=== PATIENT | male | born 1990 | race Caucasian/White ===

== ENCOUNTER 2023-05-12 18:11 | Emergency (ER) | payer SELFPAY ==
[2023-05-12 18:18] VITALS: BP 161/102; PULSE 83; RESP 15; TEMP 36.3; O2SAT 98
--- NOTE | 2023-05-12 19:22 | W.ED.GENAD ---
Discharge Plan Disposition Patient Disposition: Home Condition: Good Discharge Details Clinical Impression: Dental infection Primary Care Provider: Marizol Mott ED Provider: Hyacinth Jorgensen Home Meds and New Rx's Prescriptions: New clindamycin HCl 150 mg capsule 450 mg PO TID 5 Days Qty: 45 0RF Continued sumatriptan succinate [Imitrex] 25 MG tablet 1 tab PO PRN ibuprofen 600 MG tablet 600 mg PO Q6H PRN (Reason: Pain) Qty: 16 0RF Discharge Instructions Instructions: Clindamycin (By mouth), Dental Abscess (ED) Additional Instructions: I am concerned that you are developing an infection after receiving her dental treatment. Please encourage hydration. May take Tylenol and ibuprofen as needed for discomfort. Please take the antibiotics as prescribed. This will be 3 tablets 3 times a day. Please call your dentist on Monday to schedule follow-up appointment. If you develop fever/chills, increased pain or other new/worsening symptom please seek care urgently once again. Referrals: Marizol Mott MD [Primary Care Provider] - Discharge Data Discharge Date/Time-TO BE ENTERED AT DEPARTURE: 05/12/23 20:15 Medical Decision Making Medical Records Medical records narrative: Patient is a pleasant 32-year-old male presenting today with chief complaint of left lower dental pain. He reports that he was seen by a dentist after not having care in about 10 years, 5 days ago. He reports that he had a feeling completed and since that time the pains been progressively worsening. denies any radiation of pain. No fevers or chills. On exam, patient appears slightly uncomfortable. No audible or palpable abscess. No significant lymphadenopathy. No swelling under the tongue. No tonsillar swelling, uvula is midline. Concerned that patient developed an infection under recently placed filling. Will treat with abx, allergies to penicillins. Was given dosing tonight. Advised he call his dentist Monday to discuss the concern. Strict return precautions given. All of his questions and concerns were addressed, he is in agreement with this plan. HPI General Date/Time Provider Initiated Documentation: 05/12/23 19:22. Limitations to Documentation: no limitations. Information obtained by: patient and RN notes reviewed. History of Present Illness 32 year old M presents to the emergency department with the chief complaint of left lower dental pain, described as moderate and similar to prior episodes (has had issues with this tooth in the past, recently had this tooth fixed), with intensity rated at 4. and is localized to the mouth. Patient reports no radiation. Patient started experiencing this day(s) (cavity filled 4 days ago, pain has been increasing since then) and it has been constant. No relieving factors improve symptom(s), No exacerbating factors reported . Patient notes no other symptoms.; denies fever/chills. Patient did receive the following treatments prior to arrival, other (cavity recently filled by dentist) Related Data Home Medications Medication Instructions Recorded Confirmed ibuprofen 600 mg tablet 600 mg PO Q6H PRN Pain ##16 04/02/17 sumatriptan succinate 25 mg tablet 1 tab PO PRN 04/02/17 (Imitrex) clindamycin HCl 150 mg capsule 450 mg PO TID 5 days #45 caps 05/12/23 Previous Rx's Medication Instructions Recorded ibuprofen 600 mg tablet 600 mg PO Q6H PRN Pain ##16 04/02/17 clindamycin HCl 150 mg capsule 450 mg PO TID 5 days #45 caps 05/12/23 Allergies Allergy/AdvReac Type Severity Reaction Status Date / Time amoxicillin Allergy Mild Skin Rash Unverified 04/02/17 15:29 Penicillins Allergy Mild Skin Rash Unverified 04/02/17 15:29 General Stated Complaint: DentalOral BLANCA: 4 Review of Systems Constitutional Constitutional: Reports as per HPI, Denies chills, Denies fever(s) and Denies headache(s) ENT Ears, Nose, Mouth, and Throat: Reports as per HPI, Reports dental pain, Denies otalgia, Denies headache(s) and Denies sore throat Integumentary/Breasts Skin/Breast: Reports as per HPI, Denies erythema, Denies rash and Denies skin pain Neurologic Neurologic: Reports as per HPI and Denies headache(s) PFSH All Active Problems (Updated 05/12/23 @ 19:46 by SUZANNA Rdz) Dental infection (Acute) Social History Smoking risk assessment performed?: No Do you feel safe at home: Yes Do you feel safe in your relationship?: Yes Exam Const General: cooperative, healthy appearing, comfortable, no acute distress, well developed and well groomed Nutritional Appearance: average body habitus and well nourished Orientation: alert and awake [facility] Head: normal to inspection, normocephalic and atraumatic Ears: hearing grossly normal bilaterally, external ears normal and TM's normal bilaterally General nose exam: external nose normal and nares normal Face and sinus: normal facial exam, sinuses nontender and face symmetric Teeth image: 1. Area of pain. No erythema, swelling or fluctuance Throat: posterior oropharynx normal, tonsils normal and uvula midline Eyes General: appearance normal, both eyes and all related structures Neck Neck: normal visual inspection, full ROM, no lymphadenopathy, supple and no anterior neck swelling Resp Effort & Inspection: normal respiratory effort, able to speak in complete sentences and no respiratory distress Skin General skin exam: no rashes or lesions noted Trauma: no lacerations or abrasions Neuro General: patient alert and patient awake Cognition: normal cognition Speech: speech normal Gait: normal gait Course Vital Signs Vital signs: Vital Signs Temperature 36.3 C L 05/12/23 18:18 Pulse 83 05/12/23 18:18 Respiratory Rate 15 05/12/23 18:18 Blood Pressure 161/102 H 05/12/23 18:18 Pulse Oximetry 98 05/12/23 18:18 Temperature 36.3 C L 05/12/23 18:18 Pulse 83 05/12/23 18:18 Respiratory Rate 15 05/12/23 18:18 Blood Pressure 161/102 H 05/12/23 18:18 Blood Pressure Position Sitting 05/12/23 18:18 Pulse Oximetry 98 05/12/23 18:18 Oxygen Delivery Method Room Air 05/12/23 18:18 Oxygen Flow Rate 0 05/12/23 18:18 Pain Level 4 05/12/23 18:18
[2023-05-12] MEDS: Acetaminophen 500 MG TAB 1000 MG PO (20:13)
[2023-05-12] MEDS: Clindamycin 150 MG CAP, 12 CAPS/BTL 450 MG PO (20:13)
[2023-05-12] MEDS: Ibuprofen 600 MG TAB PO (20:13)
== END 2023-05-12 20:15 | disposition home or self-care (01) ==
PROVIDERS: Emergency Provider Physician Assistant; PCP Family Medicine
DX: K08.89 Other specified disorders of teeth and supporting structures (principal); R68.84 Jaw pain
CPT/HCPCS: 99283; 99284

== ENCOUNTER 2024-01-22 11:33 | Outpatient (REF) | payer MEDICAID, SELFPAY ==
[2024-01-22 15:35] LABS: HCT 43.6 % (40.0-50.0); HGB 14.6 g/dL (13.5-17.5); MCH 30.5 pg (27.0-33.0); MCHC 33.5 % (32.0-36.0); MCV 91 fL (80-95); MPV 9.9 fL (8.0-11.0); Platelet Count 243 10^3/uL (130-400); RBC 4.79 10^6/uL (4.36-5.78); RDW 12.3 % (11.8-14.1); WBC 5.56 10^3/uL (4.4-10.8)
[2024-01-22 16:08] LABS: Hemoglobin A1C 5.6 % (<5.7)
[2024-01-22 16:17] LABS: ALT 43 U/L (16-63); AST 17 U/L (15-37); Albumin 4.3 g/dL (3.4-5.0); Alkaline Phosphatase 74 U/L (46-116); BUN 14 mg/dL (7-18); Bilirubin, Total 0.5 mg/dL (0.2-1.0); Calcium 9.5 mg/dL (8.5-10.1); Chloride 103 mmol/L (98-107); Estimated GFR 103.19 (mL/min/1.73m2); Glucose 100 mg/dL (74-106); Potassium 4.8 mmol/L (3.5-5.1); Sodium 140 mmol/L (136-145); TSH 2.16 uIU/Ml (0.36-3.74); Total Protein 7.6 g/dL (6.4-8.2); Vitamin B12 508 pg/mL (193-986)
[2024-01-22 16:19] LABS: Folate > 20.0 ng/mL (8.6-20.0)
== END 2024-01-22 11:34 | disposition home or self-care (01) ==
LOC: NCHCN 11:33
PROVIDERS: PCP Family Medicine; Visit Provider Nurse Practitioner Family
DX: F90.9 Attention-deficit hyperactivity disorder, unspecified type (principal)
CPT/HCPCS: 80053; 85027; 82607; 82746; 83036; 84443

== ENCOUNTER 2024-01-30 15:22 | Emergency (ER) | payer MEDICAID, SELFPAY ==
[2024-01-30 15:24] VITALS: BP 140/81; PULSE 86; RESP 16; TEMP 37; O2SAT 97
--- NOTE | 2024-01-30 15:38 | ED.GENADUL_ITS ---
Discharge Plan Disposition Patient Disposition: Home Discharge Details Clinical Impression: Laceration of forearm, right Primary Care Provider: Marizol Mott ED Provider: Arden Mac Home Meds and New Rx's Prescriptions: Continued sumatriptan succinate [Imitrex] 25 MG tablet 1 tab PO PRN ibuprofen 600 MG tablet 600 mg PO Q6H PRN (Reason: Pain) Qty: 16 0RF Discharge Instructions Instructions: Laceration (ED) Additional Instructions: You were seen in the emergency department for your right wrist lacerations which were closed with 3 sutures that will need to be removed in 7 to 10 days. As we discussed, please keep your wound clean, dry and covered. Please do not soak in a tub, swim or engage in any activities which could introduce dirt into your wound. You may return to the emergency department, go to urgent care or go to your primary care provider in 7 to 10 days to have your stitches removed. As we discussed if you develop any foul-smelling drainage fevers streaking signs of infection or have any other concerns please return to the emergency department. For your pain please take medications as follows: 1. Take acetaminophen (Tylenol), 1,000 mg (two 500 mg tabs) every 6 hours [2. Take ibuprofen (Advil), 400 mg every 6 hours.] Discharge Data Discharge Date/Time-TO BE ENTERED AT DEPARTURE: 01/30/24 17:32 HPI General Date/Time Provider Initiated Documentation: 01/30/24 15:38 . HPI Narrative: MDM This is an overall very well-appearing normothermic and not tachycardic [id number] male with subcutaneous laceration which received primary closure in the emergency department following copious irrigation. Please see procedure note for details. Patient was neurovascularly intact with intact sensory and motor function in his distal right hand so I was not concerned for any tendon injury. Patient had his tetanus updated approximately 4 weeks ago. He was not trying to harm himself. Patient and I discussed return to the ED for streaking signs of infection fevers any foul-smelling drainage. I advised PCP urgent care or ED follow-up for suture removal in 7 to 10 days. Patient understood his return indications and was discharged with empiric trial of expe ctant outpatient management. HPI This is a [id number] 33-year-old male history of bipolar disorder and ADHD arriving to the emergency department in the setting of a laceration he sustained at work. Patient works as an licensed journeyman electrician. He slipped and cut the inside of his right wrist with a drill bit at approximately 3 PM this afternoon. He establish care with a primary care provider last month and had his tetanus updated. He was not trying to harm himself. His bleeding was controlled. He has not noticed any weakness in his right hand. Exam General: Well-appearing in no acute distress speaking in complete sentences. Head: Normocephalic, atraumatic. Eye: Extraocular eye movements intact. No conjunctival injection. No scleral icterus. Ear, nose, mouth, throat: Grossly normal inspection. Normal voice, handling secretions normally. Neck: Trachea midline. Cardiovascular: Well-perfused distal extremities. Respiratory: Nonlabored respiration. Gastrointestinal: Nondistended abdomen. Musculoskeletal: On the volar and ulnar side of the right wrist there are 2 lacerations. The first laceration measures approximately 3 cm and it is just proximal to the right wrist. Second laceration is on the radial side of the first laceration and is 1 cm. Both lacerations are hemostatic. Both lacerations violates the subcutaneous tissue. Right hand warm well-perfused with 2+ right radial pulse. Sensation motor function intact in the right hand across the radial, ulnar and median nerves. Cap refill less than 2 seconds in the right fingertips. Skin: Normal for age and race, grossly normal temperature and turgor. No acute rash. Neurologic: Alert and appropriate, no apparent acute deficits. Psychiatric: Mood and manner are appropriate. Grooming and personal hygiene are appropriate. Related Data Home Medications Medication Instructions Recorded Confirmed ibuprofen 600 mg tablet 600 mg PO Q6H PRN Pain ##16 04/02/17 sumatriptan succinate 25 mg tablet 1 tab PO PRN 04/02/17 (Imitrex) Previous Rx's Medication Instructions Recorded ibuprofen 600 mg tablet 600 mg PO Q6H PRN Pain ##16 04/02/17 Allergies Allergy/AdvReac Type Severity Reaction Status Date / Time amoxicillin Allergy Mild Skin Rash Verified 01/30/24 15:28 Penicillins Allergy Mild Skin Rash Verified 01/30/24 15:28 General Stated Complaint: Laceration BLANCA: 3 Course Vital Signs Vital signs: Vital Signs Temperature 37.0 C 01/30/24 15:24 Pulse 86 01/30/24 15:24 Respiratory Rate 16 01/30/24 15:24 Blood Pressure 140/81 01/30/24 15:24 Pulse Oximetry 97 01/30/24 15:24 Temperature 37.0 C 01/30/24 15:24 Pulse 86 01/30/24 15:24 Respiratory Rate 16 01/30/24 15:24 Respiratory Effort Normal 01/30/24 15:27 Blood Pressure 140/81 01/30/24 15:24 Blood Pressure Position Sitting 01/30/24 15:24 Pulse Oximetry 97 01/30/24 15:24 Oxygen Delivery Method Room Air 01/30/24 15:24 Oxygen Flow Rate 0 01/30/24 15:24 Pain Level 2 01/30/24 15:24 Procedures Laceration Laceration 1: Site: upper extremity Side (If applicable): right Size (cm): 3 Description: linear Depth: simple, single layer Local Anesthetic: Lidocaine 2% and other anesthetic (L ET) Amount of anesthesia used (mL): 3 Pre-repair: wound explored and irrigated extensively Skin layer closed with: nylon (Prolene) Size (cm): 5-0 Number of sutures: 2 Technique: simple, interrupted Laceration 2: Site: upper extremity Side (If applicable): right Size (cm): 1 Description: linear Depth: simple, single layer Local Anesthetic: Lidocaine 2% and other anesthetic (LET) Amount of anesthesia used (mL): 3 Pre-repair: wound explored and irrigated extensively Skin layer closed with: nylon Size (cm): 5-0 (Prolene) Number of sutures: 1 Technique: simple, interrupted Medical Decision Making Quality:SDOH Health Related Social Needs: No Data to Display PFSH All Active Problems (Updated 01/30/24 @ 17:17 by Arden Mac MD) Laceration of forearm, right (Acute) Social History Smoking/Tobacco Use Status: Current every day Smoking risk assessment performed?: Yes Do you feel safe at home: Yes Do you feel safe in your relationship?: Yes
[2024-01-30] MEDS: Lidocaine/Epinephri/Tetracaine Topical Gel 3 ML TP (16:23)
== END 2024-01-30 17:32 | disposition home or self-care (01) ==
PROVIDERS: Emergency Provider Emergency Medicine; PCP Family Medicine
DX: S61.511A Laceration without foreign body of right wrist, initial encounter (principal); W29.8XXA Contact with other powered hand tools and household machinery, initial encounter; Y99.0 Civilian activity done for income or pay; F31.9 Bipolar disorder, unspecified; F90.9 Attention-deficit hyperactivity disorder, unspecified type
CPT/HCPCS: 12002

== ENCOUNTER 2024-02-07 13:50 | Emergency (ER) | payer MEDICAID, SELFPAY ==
[2024-02-07 13:53] VITALS: BP 137/71; PULSE 66; RESP 15; TEMP 36.6; O2SAT 97
--- NOTE | 2024-02-07 13:59 | ED.GENADUL_ITS ---
Discharge Plan Disposition Patient Disposition: Home Condition: Stable Discharge Details Clinical Impression: Infected wound, Laceration of forearm, right Primary Care Provider: Marizol Mott ED Provider: César Schumacher Home Meds and New Rx's Prescriptions: New clindamycin HCl 150 mg capsule 450 mg PO TID 7 Days Qty: 63 0RF Continued sumatriptan succinate [Imitrex] 25 MG tablet 1 tab PO PRN ibuprofen 600 MG tablet 600 mg PO Q6H PRN (Reason: Pain) Qty: 16 0RF Discharge Instructions Additional Instructions: Keep the wound clean If you have severe worsening pain or fevers return to the emergency department for reevaluation Follow-up with your primary care provider as needed HPI General Mode of arrival: ambulatory . Date/Time Provider Initiated Documentation: 02/07/24 13:54 . Limitations to Documentation: no limitations . Information obtained by: patient . History of Present Illness 33 year old M presents to the emergency department with the chief complaint of Suture removal, described as moderate, Patient started experiencing this week(s) (1) and it has been constant. No relieving factors improve symptom(s), No exacerbating factors reported . Patient notes denies fever/chills. Patient did receive the following treatments prior to arrival, none Related Data Home Medications Medication Instructions Recorded Confirmed ibuprofen 600 mg tablet 600 mg PO Q6H PRN Pain ##16 04/02/17 sumatriptan succinate 25 mg tablet 1 tab PO PRN 04/02/17 (Imitrex) clindamycin HCl 150 mg capsule 450 mg (3 x 150 mg) PO TID 7 days 02/07/24 #63 caps Previous Rx's Medication Instructions Recorded ibuprofen 600 mg tablet 600 mg PO Q6H PRN Pain ##16 04/02/17 clindamycin HCl 150 mg capsule 450 mg (3 x 150 mg) PO TID 7 days 02/07/24 #63 caps Allergies Allergy/AdvReac Type Severity Reaction Status Date / Time amoxicillin Allergy Mild Skin Rash Verified 01/30/24 15:28 Penicillins Allergy Mild Skin Rash Verified 01/30/24 15:28 General Stated Complaint: SutureRem BLANCA: 4 Review of Systems All systems reviewed & are unremarkable except as noted in HPI and below Constitutional Constitutional: Denies chills, Denies fever(s) and Denies weakness Cardiovascular Cardiovascular: Denies chest pain and Denies dyspnea Respiratory Respiratory: Denies cough and Denies dyspnea Gastrointestinal Gastrointestinal: Denies abdominal pain, Denies nausea and Denies vomiting Musculoskeletal Musculoskeletal: Denies joint swelling Integumentary/Breasts Skin/Breast: Reports rash Neurologic Neurologic: Denies weakness Exam Const General: no acute distress Orientation: alert HENMT Head: normal to inspection Ears: external ears normal General nose exam: external nose normal Mouth: moist mucous membranes Eyes General: appearance normal, both eyes and all related structures Neck Neck: normal visual inspection Resp Effort & Inspection: normal respiratory effort and able to speak in complete sentences Cardio Rate: regular rate Skin General skin exam: erythema Neuro General: patient alert Extrem General: capillary refill normal Psych Mental Status: mental status grossly normal Course Vital Signs Vital signs: Vital Signs Temperature 36.6 C 02/07/24 13:53 Pulse 66 02/07/24 13:53 Respiratory Rate 15 02/07/24 13:53 Blood Pressure 137/71 02/07/24 13:53 Pulse Oximetry 97 02/07/24 13:53 Temperature 36.6 C 02/07/24 13:53 Temperature Source Temporal Artery Scan 02/07/24 13:53 Pulse 66 02/07/24 13:53 Respiratory Rate 15 02/07/24 13:53 Respiratory Effort Normal 02/07/24 13:57 Blood Pressure 137/71 02/07/24 13:53 Blood Pressure Position Sitting 02/07/24 13:53 Pulse Oximetry 97 02/07/24 13:53 Oxygen Delivery Method Room Air 02/07/24 13:53 Oxygen Flow Rate 0 02/07/24 13:53 Pain Level 0 02/07/24 13:53 Medical Decision Making 33-year-old male comes in for suture removal after at 3 sutures placed on his right distal forearm. He denies any fevers or severe pain but has noted some erythema around the wound. He has about 1 cm surrounding erythema around the wound and the wound does seem well healed. There is no significant swelling. Concern for possible wound infection we will start him on clindamycin, sutures will be removed by nursing, return precautions given Differential Diagnosis Differential Diagnosis: Wound infection, cellulitis. Quality:SDOH Health Related Social Needs: No Data to Display PFSH All Active Problems (Updated 02/07/24 @ 13:59 by César Schumacher MD) Infected wound (Acute) Laceration of forearm, right (Acute) Social History Smoking/Tobacco Use Status: Current every day Smoking risk assessment performed?: Yes Alcohol Intake: never Drug use: Never Substance use type: does not use Do you feel safe at home: Yes Do you feel safe in your relationship?: Yes
== END 2024-02-07 14:23 | disposition home or self-care (01) ==
PROVIDERS: Emergency Provider Emergency Medicine; PCP Family Medicine
DX: S51.811D Laceration without foreign body of right forearm, subsequent encounter (principal); L03.113 Cellulitis of right upper limb; F17.210 Nicotine dependence, cigarettes, uncomplicated
CPT/HCPCS: 99283

== ENCOUNTER 2024-02-10 04:34 | Emergency (ER) | payer MEDICAID, SELFPAY ==
[2024-02-10 04:40] VITALS: BP 145/86; PULSE 63; RESP 22; TEMP 36.8; O2SAT 99
--- NOTE | 2024-02-10 04:48 | W.ED.GENAD ---
Discharge Plan Disposition Patient Disposition: Home Condition: Good Discharge Details Chief Complaint: DentalOral Clinical Impression: Acute periapical abscess, Dental caries Primary Care Provider: Marizol Mott ED Provider: Alex Corbett Home Meds and New Rx's Prescriptions: No Action sumatriptan succinate [Imitrex] 25 MG tablet 1 tab PO ONCE PRN ibuprofen 600 MG tablet 600 mg PO Q6H PRN (Reason: Pain) Qty: 16 0RF lisdexamfetamine [Vyvanse] 40 mg capsule 40 mg PO DAILY Lotrexone 1.5 mg capsule 1.5 mg PO DAILY clindamycin HCl 150 mg capsule 450 mg PO TID 7 Days Qty: 63 0RF Discharge Instructions Instructions: Dental Abscess (ED) Additional Instructions: The block we administered should help improve your pain. Please take 800 mg of ibuprofen every 6 hours and 1000 mg of Tylenol every 6 hours to help with the inflammation and pain. These are the maximum doses. Please take the antibiotic as directed to help with the infection in your tooth. Please use the dental list that we have provided to contact the dentist for prompt follow-up and evaluation for tooth removal. If you notice any worsening of your symptoms, or any new symptoms such as difficulty swallowing, difficulty breathing, vomiting, diarrhea, fever, chills, shortness of breath, chest pain, numbness, weakness, or fainting , please return immediately to the emergency department for reevaluation. Please follow up with your primary care provider as soon as possible for reassessment and reevaluation. As always, it was a pleasure participating in your medical care today. Referrals: Marizol Mott MD [Primary Care Provider] - [facility] General Date/Time Provider Initiated Documentation: 02/10/24 04:36. [facility] Narrative: This is a pleasant 33-year-old male who presents today for evaluation of right lower dental pain. Patient had a right lower molar that broke sometime ago, however over the last week or so he has had worsening pain in that area. 2 days ago he was started on an antibiotic clindamycin for a skin infection on his wrist. While on this he has noticed slight increase in pain and swelling in the right lower molar area. He denies fever or chills. He denies chest pain or shortness of breath. No other complaints. He has been taking Tylenol and Motrin with only mild improvement of pain. He denies vomiting or diarrhea. No other complaints at this time. Related Data Home Medications Medication Instructions Recorded Confirmed ibuprofen 600 mg tablet 600 mg PO Q6H PRN Pain ##16 04/02/17 02/10/24 sumatriptan succinate 25 mg tablet 1 tab PO ONCE PRN 04/02/17 02/10/24 (Imitrex) clindamycin HCl 150 mg capsule 450 mg (3 x 150 mg) PO TID 7 days 02/07/24 02/10/24 #63 caps lisdexamfetamine 40 mg capsule 40 mg PO DAILY 02/10/24 02/10/24 (Vyvanse) naltrexone 1.5 mg capsule 1.5 mg PO DAILY 02/10/24 02/10/24 (Lotrexone) Previous Rx's Medication Instructions Recorded ibuprofen 600 mg tablet 600 mg PO Q6H PRN Pain ##16 04/02/17 clindamycin HCl 150 mg capsule 450 mg (3 x 150 mg) PO TID 7 days 02/07/24 #63 caps Allergies Allergy/AdvReac Type Severity Reaction Status Date / Time amoxicillin Allergy Mild Skin Rash Verified 01/30/24 15:28 Penicillins Allergy Mild Skin Rash Verified 01/30/24 15:28 General Stated Complaint: DentalOral BLANCA: 3 Review of Systems All systems reviewed & are unremarkable except as noted in HPI and below Exam Narrative Exam Narrative: 1.Const: Well-nourished, Well-developed, appearing stated age 2.Eyes: PERRL, no conjunctival injection, and symmetrical lids. 3.ENT: Atraumatic external nose and ears. Moist MM. Neck: Symmetric, trachea midline, No thyromegaly. Small fractured molar in the posterior right lower molar group. Small periapical abscess next to this. No evidence of Ludewig's angina or oropharyngeal swelling otherwise. 4.CVS: +S1/S2, No murmurs or gallops. Peripheral pulses 2+ and equal in all extremities. Brisk capillary refill in all extremities. 5.RESP: Unlabored respiratory effort. Clear to auscultation bilaterally. No wheezes rales or rhonchi 6.GI: Soft, Nontender/Nondistended, No hepatosplenomegaly. No guarding or rebound. 7.MSK: Normocephalic/Atraumatic, Extremities w/o deformity or ttp No cyanosis or clubbing, Normal movement of all extremities 8.Skin: Warm, Dry. No rashes or lesions. 9.Neuro: traveling nurse II-XII grossly intact. Sensation grossly intact, no focal neurologic deficits. 10.Psych: (AAO) x3. Appropriate mood and affect Course Vital Signs Vital signs: Vital Signs Temperature 36.8 C 02/10/24 04:40 Pulse 63 02/10/24 04:40 Respiratory Rate 22 02/10/24 04:40 Blood Pressure 145/86 H 02/10/24 04:40 Pulse Oximetry 99 02/10/24 04:40 Temperature 36.8 C 02/10/24 04:40 Temperature Source Temporal Artery Scan 02/10/24 04:40 Pulse 63 02/10/24 04:40 Respiratory Rate 22 02/10/24 04:40 Respiratory Effort Normal, Non-Labored 02/10/24 04:44 Blood Pressure 145/86 H 02/10/24 04:40 Blood Pressure Position Sitting 02/10/24 04:40 Pulse Oximetry 99 02/10/24 04:40 Oxygen Delivery Method Room Air 02/10/24 04:40 Oxygen Flow Rate 0 02/10/24 04:40 Pain Level 6 02/10/24 04:44 Procedures Abscess I/D Site: Other (Right lower periapical space) Side (if applicable): Right Sedation/analgesia: None Local Anesthetic: Bupivicaine 0.25% Amount of anesthesia used (mL): 5 Technique: Needle Aspiration Amount of fluid expressed (mL): 1 Irrigation: No Packing used?: None Nerve Block Nerve Block 1: Time out performed: Yes Local Anesthetic: Bupivicaine 0.25% Amount of anesthesia used (mL): 5 Side: right Intraoral Nerve Block: inferior alveolar Procedure Successful: Yes Patient Tolerated Procedure: well and no complications Complications: none Medical Decision Making This is a pleasant 33-year-old male who presents today for evaluation of right lower dental pain. Patient had a right lower molar that broke sometime ago, however over the last week or so he has had worsening pain in that area. 2 days ago he was started on an antibiotic clindamycin for a skin infection on his wrist. While on this he has noticed slight increase in pain and swelling in the right lower molar area. He denies fever or chills. He denies chest pain or shortness of breath. No other complaints. He has been taking Tylenol and Motrin with only mild improvement of pain. He denies vomiting or diarrhea. No other complaints at this time. Exam demonstrates well-appearing male, mild periapical abscess next to a broken molar in the right lower jaw space. No evidence of Ludewig's angina, peritonsillar abscess or other abnormality. Patient otherwise clinically looks well. Discussed risks and benefits of dental block, patient consented to procedure, dental block was performed, excellent analgesia achieved. Periapical abscess was incised with an 18-gauge needle, patient tolerated this well. Patient is on clindamycin will recommend continuation of this. Recommend continued NSAID therapy. Discussed the importance of definitive dental management. Discussed red flags for which to return. I have extensively reviewed the treatment plan and discharge instructions with the patient. I have addressed all patient concerns at this time. The patient was made aware of what symptoms to monitor for that would warrant a return to the emergency department. Discussed the plan with the patient, they demonstrate verbal understanding and agreement with our assessment and plan at this time. The documentation in this chart was dictated using [employer] dictation software. Please excuse any dictation errors. Quality:SDOH Health Related Social Needs: No Data to Display PFSH All Active Problems (Updated 02/10/24 @ 04:54 by Alex Corbett DO) Dental caries (Acute) Acute periapical abscess (Acute) Infected wound (Acute) Laceration of forearm, right (Acute) Social History Smoking/Tobacco Use Status: Current every day Smoking risk assessment performed?: Yes Alcohol Intake: current Alcohol Intake frequency: 0-2 drinks per day Drug use: Daily Substance use type: marijuana Housing: apartment Do you feel safe at home: Yes Do you feel safe in your relationship?: Yes PAWSS Have you Been Recently Intoxicated or Drunk Within the Last 30 days?: No Have you Ever Experienced Previous Episodes of Alcohol Withdrawal?: No Have you ever Experienced Withdrawal Seizures?: No Have you ever Experienced Delirium Tremens(DT)s?: No Have you ever undergone Alcohol Rehabilitation Treatment (i.e, inpt ot outpatient treatment programs)?: No Have you ever Experienced Blackouts?: No Have you ever Combined Alcohol with other Downers within the last 90 days?: No Have you ever Combined Alcohol with any other Substance of Abuse during the last 90 days?: No Positive Blood Alcohol level on Presentation? [PCS.BAL]: No Evidence of Increased Autonomic Activity (i.e. HR>120, tremor, sweating, agitation, nausea)?: No Result: 0
== END 2024-02-10 05:03 | disposition home or self-care (01) ==
PROVIDERS: Emergency Provider Student in an Organized Health Care Education/Training Program; PCP Nurse Practitioner Family
DX: K04.7 Periapical abscess without sinus (principal); K02.9 Dental caries, unspecified; F17.200 Nicotine dependence, unspecified, uncomplicated
CPT/HCPCS: 10160; 64400; 99283; J0665

== ENCOUNTER 2024-02-26 05:22 | Emergency (ER) | payer MEDICAID, SELFPAY ==
[2024-02-26 05:27] VITALS: BP 151/80; PULSE 74; RESP 14; TEMP 35.6; O2SAT 100
--- NOTE | 2024-02-26 05:27 | W.ED.GENAD ---
Discharge Plan Disposition Patient Disposition: Home Condition: Good Discharge Details Clinical Impression: Viral URI with cough, Conjunctivitis of left eye Primary Care Provider: NOHEMY WALKER ED Provider: Colin Sanchez Meds and New Rx's Prescriptions: New erythromycin 5 mg/gram (0.5 %) Ointment 0.5 cm OS TID Qty: 3.5 0RF benzonatate 100 mg capsule 100 mg PO TID PRN (Reason: cough) Qty: 15 0RF Continued sumatriptan succinate [Imitrex] 25 MG tablet 1 tab PO ONCE PRN ibuprofen 600 MG tablet 600 mg PO Q6H PRN (Reason: Pain) Qty: 16 0RF lisdexamfetamine [Vyvanse] 40 mg capsule 40 mg PO DAILY Lotrexone 1.5 mg capsule 1.5 mg PO DAILY lamotrigine [Lamictal] 100 mg tablet 100 mg PO DAILY dextroamphetamine-amphetamine [Adderall] 5 mg tablet 5 mg PO DAILY Discharge Instructions Instructions: Upper Respiratory Infection ED, Conjunctivitis ([facility]) ED Additional Instructions: You were seen in the ED for cough and URI symptoms as well as left eye redness and discomfort. Your nasal swab is negative for flu, COVID, RSV. Your chest x-ray shows no evidence of pneumonia. Your eye does suggest bacterial conjunctivitis and you have been started on erythromycin ointment which you should continue for the next 5 to 7 days. Stay home and rest for the next couple of days. Push fluids to hydrate. Use acetaminophen or ibuprofen for discomfort. May try benzonatate as prescribed for cough. Follow-up with primary care next week if not improving. Return to ED for any worsening chest pain, shortness of breath, mental status change, abdominal pain, persistent vomiting, other concerns. Stand Alone Forms: Work Release Referrals: NOHEMY WALKER, WHE[employer]CHA[employer]AN [employer]IVER [Primary Care Provider] - [facility] General Mode of arrival: ambulatory. Date/Time Provider Initiated Documentation: 02/26/24 05:27. Limitations to Documentation: no limitations. Information obtained by: patient. HPI Narrative: Patient presents to ED with complaint of sore throat, cough, red and watery eye. Patient reports and kids have cough as well. His cough is been present now for 4 days. He has had sweats and chills but has never taken his temperature. He has pain with cough and deep breath but otherwise does not have any type of chest pain. Does complain of sore throat. Does not remember ever getting anything in his eye but reports it being red and uncomfortable and at times watering. Denies vomiting but has had some diarrhea. Denies any abdominal pain. He is a smoker. Does not have shortness of breath per se but pain with deep breaths. Related Data Home Medications Medication Instructions Recorded Confirmed ibuprofen 600 mg tablet 600 mg PO Q6H PRN Pain ##16 04/02/17 02/26/24 sumatriptan succinate 25 mg tablet 1 tab PO ONCE PRN 04/02/17 02/26/24 (Imitrex) lisdexamfetamine 40 mg capsule 40 mg PO DAILY 02/10/24 02/26/24 (Vyvanse) naltrexone 1.5 mg capsule 1.5 mg PO DAILY 02/10/24 02/26/24 (Lotrexone) benzonatate 100 mg capsule 100 mg PO TID PRN cough #15 caps 02/26/24 dextroamphetamine-amphetamine 5 mg 5 mg PO DAILY 02/26/24 02/26/24 tablet (Adderall) erythromycin 5 mg/gram (0.5 %) eye 0.5 cm OS TID #3.5 grams 02/26/24 ointment lamotrigine 100 mg tablet 100 mg PO DAILY 02/26/24 02/26/24 (Lamictal) Previous Rx's Medication Instructions Recorded ibuprofen 600 mg tablet 600 mg PO Q6H PRN Pain ##16 04/02/17 benzonatate 100 mg capsule 100 mg PO TID PRN cough #15 caps 02/26/24 erythromycin 5 mg/gram (0.5 %) eye 0.5 cm OS TID #3.5 grams 02/26/24 ointment Allergies Allergy/AdvReac Type Severity Reaction Status Date / Time amoxicillin Allergy Mild Skin Rash Verified 02/26/24 05:36 Penicillins Allergy Mild Skin Rash Verified 02/26/24 05:36 General BLANCA: 3 Review of Systems Narrative: Per HPI Exam Narrative Exam Narrative: Const: WDWN male in NAD. VS per triage. HEENT: NC/AT. Normal facial exam. TMs clear bilaterally. Posterior oropharynx erythematous without exudate or ulcer. Eyes: PERRL and EOMI. Conjunctival injection with some purulent discharge. No obvious foreign body appreciated. Fluorescein staining without dye uptake, normal cornea. Neck: Supple. Trachea midline. Lungs: Normal respiratory effort. Lungs are clear. Cor: RRR with murmur. Good radial pulses. GI: Soft/ND Neuro: A+O x 3. Normal speech, mentation, gait. Cranial nerves II - XII grossly intact. No gross motor or sensory deficit. Ext: No C/C/E. Medical Decision Making Patient presenting to ED with constellation of symptoms that suggest viral infection. This includes what appears to be a left conjunctivitis with some purulent discharge and no foreign body or corneal uptake on fluorescein staining. His lungs are clear. He does report pain with cough and deep breath. No concern for PE and PERCs out. Will obtain chest x-ray and Fluvid. Tessalon given for cough. Chest x-ray per my read negative for acute cardiopulmonary process. Specifically there is no infiltrate to suggest pneumonia. Fluvid has come back negative. Will start on erythromycin ointment for left eye conjunctivitis. Otherwise treat symptomatically for presumed viral URI with fluids, acetaminophen or ibuprofen for discomfort, Tessalon for cough. Follow-up with primary care next week if not improving. Return precautions provided. Imaging Data Radiologic Study: Attestation: I personally reviewed and interpreted this imaging study as follows: Imaging: X-Ray My impression: Negative chest x-ray PFSH All Active Problems (Updated 02/26/24 @ 07:23 by Colin Sanchez MD) Conjunctivitis of left eye (Acute) Viral URI with cough (Acute) Dental caries (Acute) Acute periapical abscess (Acute) Infected wound (Acute) Laceration of forearm, right (Acute) Medical History ADHD Migraine Social History Smoking/Tobacco Use Status: Current every day Tobacco Type: cigarettes Years smoked: 6, e-cigarettes and smokeless tobacco Smoking risk assessment performed?: Yes Alcohol Intake: former Drug use: Daily Substance use type: marijuana Housing: apartment Do you feel safe at home: Yes Do you feel safe in your relationship?: Yes
[2024-02-26] MEDS: Tetracaine 0.5% 4 ML BTL (05:43)
[2024-02-26] MEDS: Fluorescein STRIPS 100/BOX 1 MG OP (05:44)
--- NOTE | 2024-02-26 05:45 | DI.RAD_ITS ---
Exam(s) XR CHEST 2V PA LATERAL EXAM: XR CHEST 2V PA LATERAL CLINICAL HISTORY: cough, chest pain TECHNIQUE: 2D digital imaging was performed of the chest. Two images were obtained. PA and lateral views were obtained. COMPARISON: CR ABD FLAT UPRIGHT PA CHEST from 09/14/2010 FINDINGS: MEDIASTINUM: Normal. HEART: Normal. PULMONARY VASCULATURE: Normal. LUNGS: The lungs are hyperinflated. This can be seen with reactive airways disease/asthma. No focal consolidating infiltrates are present. PLEURAL SPACE: No pleural effusion or pneumothorax. BONE:Within normal limits for the patient's age. OTHER FINDINGS:Normal. IMPRESSION: Pulmonary hyperinflation. This can be seen with reactive airways disease/asthma. No focal consolida ting infiltrates are present. DATA REPOSITORY: RADIATION DOSE DELIVERED:
[2024-02-26 06:09] LABS: COVID-19 PCR Negative (Negative); Influenza A PCR Negative (Negative); Influenza B PCR Negative (Negative); RSV PCR Negative (Negative)
[2024-02-26] MEDS: Benzonatate 100 MG CAP PO (06:09)
[2024-02-26 06:24] VITALS: RESP 14
[2024-02-26 07:16] LABS: Source Nasopharynx
--- NOTE | 2024-02-26 07:34 | DI.VRAD_ITS ---
PROCEDURE INFORMATION: Exam: XR Chest Exam date and time: 02/26/2024 6:12 AM Age: 33 years old Clinical indication: Patient HX: Cough, chest pain TECHNIQUE: Imaging protocol: Radiologic exam of the chest. Views: 2 views. COMPARISON: No relevant prior studies available. FINDINGS: Lungs: Hyperinflated lungs. Pleural spaces: No large pleural effusion seen. Heart/Mediastinum: No cardiomegaly. Bones/joints: Grossly unremarkable. IMPRESSION: Hyperinflated lungs. Dictated and Authenticated by: Barbra Mims MD. Ordering:HUSAM Shaw MD
[2024-02-26 07:45] VITALS: BP 133/74; PULSE 65; RESP 15; O2SAT 99
[2024-02-26] MEDS: Erythromycin Ophth Oint 3.5 GM TUBE OS (07:45)
== END 2024-02-26 07:46 | disposition home or self-care (01) ==
PROVIDERS: Emergency Provider Emergency Medicine; PCP Nurse Practitioner Family
DX: J06.9 Acute upper respiratory infection, unspecified (principal); R05.9 Cough, unspecified; H10.9 Unspecified conjunctivitis
CPT/HCPCS: 87637; 99283; 71046

== ENCOUNTER 2024-10-09 19:04 | Emergency (ER) | payer MEDICAID, SELFPAY ==
[2024-10-09 19:05] VITALS: BP 122/85; PULSE 96; RESP 16; TEMP 37.2; O2SAT 98
[2024-10-09 19:08] VITALS: BP 122/85; PULSE 96; RESP 16; TEMP 37.2; O2SAT 98
--- NOTE | 2024-10-09 19:15 | RT.EKG_ITS ---
APPROVED REPORT Exam: Resting ECG Reason for Exam: loc Patient Location: E HR:91 bpm ECG Measurements Heart Rate 91 AXIS LA 122 P 60 QRSd 101 QRS 23 QT 335 T 52 QTc 412 Conclusion Sinus rhythm, rate 91 No interval abnormalities Borderline VAUGHN in V1, V2, ERIK pattern No STEMI No priors available for comparison
--- NOTE | 2024-10-09 19:15 | W.ED.GENAD ---
Discharge Plan Disposition Patient Disposition: Home Condition: Stable Discharge Details Clinical Impression: Cellulitis, Vaso vagal episode Primary Care Provider: NOHEMY WALKER ED Provider: Alex Magallon Home Meds and New Rx's Prescriptions: New cephalexin 500 mg capsule 500 mg PO QID 7 Days Qty: 28 0RF Continued sumatriptan succinate [Imitrex] 25 MG tablet 1 tab PO ONCE PRN ibuprofen 600 MG tablet 600 mg PO Q6H PRN (Reason: Pain) Qty: 16 0RF lisdexamfetamine [Vyvanse] 40 mg capsule 40 mg PO DAILY lamotrigine [Lamictal] 100 mg tablet 100 mg PO DAILY dextroamphetamine-amphetamine [Adderall] 5 mg tablet 5 mg PO DAILY Discharge Instructions Instructions: Vasovagal Response, Cephalexin, Cellulitis (Skin Infection), Adult ED Additional Instructions: You were seen in the emergency department for your right ear soft tissue infection as well as infection of a minor cut to your right wrist. Your laboratory workup shows no signs of systemic infection there is no electrolyte abnormality, your cardiac enzymes are normal and your EKG is normal, I do not suspect you are having any kind of cardiac syncope but you may be a little dehydrated today and may have had a little bit of a vasovagal response and a brief fainting episode. Otherwise he appears young and healthy, please take the prescribed cephalexin for infection as directed. Please return to the emergency department for any worsening especially red streaking up your arm, further episodes of dizziness and fainting, chest pain, shortness of breath, any other emergent concerns. Referrals: NOHEMY WALKER, COURT ABSTRACTOR [Primary Care Provider] - Discharge Data Discharge Date/Time-TO BE ENTERED AT DEPARTURE: 10/09/24 21:15 HPI General Date/Time Provider Initiated Documentation: 10/09/24 19:15. HPI Narrative: 33 year-old male presents to ED today by POV/ambulating with a chief complaint of known R ear infection from ear piercing, R wrist abrasion with some redness and has expressed some purulence from the area, and a possible episode of syncope earlier today with headache. Quality described as generalized malaise, no radiation to red streaking up the arm, chest pain, shortness of breath, weakness, nausea. Severity is described as moderate. Palliating factors include nothing specific. Provoking factors include nothing specific. Patient not anticoagulated. Related Data Home Medications ?Medication ?Instructions ?Recorded ?Confirmed ibuprofen 600 mg tablet 600 mg PO Q6H PRN Pain ##16 04/02/17 10/09/24 sumatriptan succinate 25 mg tablet 1 tab PO ONCE PRN 04/02/17 10/09/24 (Imitrex) lisdexamfetamine 40 mg capsule 40 mg PO DAILY 02/10/24 10/09/24 (Vyvanse) dextroamphetamine-amphetamine 5 mg 5 mg PO DAILY 02/26/24 10/09/24 tablet (Adderall) lamotrigine 100 mg tablet 100 mg PO DAILY 02/26/24 10/09/24 (Lamictal) cephalexin 500 mg capsule 500 mg PO QID cellulitis 7 days 10/09/24 #28 caps Previous Rx's ?Medication ?Instructions ?Recorded ibuprofen 600 mg tablet 600 mg PO Q6H PRN Pain ##16 04/02/17 cephalexin 500 mg capsule 500 mg PO QID cellulitis 7 days 10/09/24 #28 caps Allergies Allergy/AdvReac Type Severity Reaction Status Date / Time amoxicillin Allergy Mild Skin Rash Verified 10/09/24 19:08 Penicillins Allergy Mild Skin Rash Verified 10/09/24 19:08 General Stated Complaint: Cellulitis BLANCA: 3 Review of Systems All systems reviewed & are unremarkable except as noted in HPI and below Exam Narrative Exam Narrative: GENERAL APPEARANCE: Well-nourished, non-toxic, awake and alert, atraumatic, no acute distress. SKIN: Warm, pink, dry, mild erythema to the right earlobe, small 1 cm abrasion to right wrist with mild erythema without purulent drainage or fluctuant swelling HEAD: Normocephalic, atraumatic, normal hair distribution for gender/age. EYES: Normal conjunctiva, no exudates on lids/lashes. ENT: Nares patent, no circumoral cyanosis, no facial swelling NECK: Supple, trachea midline, painless cervical ROM. LUNGS/CHEST: Lungs CTA bilaterally- no rhonchi/rales/wheezes diffusely, non-labored respirations, normal A/P diameter, symmetrical expansion, no chest wall deformity HEART (CV/PV): Regular rate and rhythm without murmur, no peripheral edema, no JVD. ABDOMEN: Soft, non-distended, no guarding. MSK: Normal ROM, no swelling/deformity to bilateral UEs or LEs, moving all extremities without weakness, no cyanosis, spine midline without tenderness, normal curvature. NEURO: Mental Status AAOx4 - alert to person, place, time, events No facial droop, no forehead involvement. Motor: No focal weakness - strength 5/5 in bilateral UEs and LEs, proximal and distal, symmetric. Sensory: sensation intact to light touch globally. Gait normal: patient ambulated without ataxia into ED room. PSYCH: euthymic, cooperative, pleasant, appropriate speech Course Vital Signs Vital signs: Vital Signs Temperature 37.2 C 10/09/24 19:05 Pulse 96 H 10/09/24 19:05 Respiratory Rate 16 10/09/24 19:05 Blood Pressure 122/85 10/09/24 19:05 Pulse Oximetry 98 10/09/24 19:05 Temperature 37.2 C 10/09/24 19:08 Pulse 96 H 10/09/24 19:08 Respiratory Rate 16 10/09/24 19:08 Blood Pressure 122/85 10/09/24 19:08 Pulse Oximetry 98 10/09/24 19:08 Pain Level 1 10/09/24 19:08 Medical Decision Making This dictation utilizes [id number] dictation software and may contain unedited grammatical errors. 33 year-old male presents to ED today by POV/ambulating with a chief complaint of known R ear infection from ear piercing, R wrist abrasion with some redness and has expressed some purulence from the area, and a possible episode of syncope earlier today with headache. Quality described as generalized malaise, no radiation to red streaking up the arm, chest pain, shortness of breath, weakness, nausea. Severity is described as moderate. Palliating factors include nothing specific. Provoking factors include nothing specific. Patients' medical history: Noncontributory, otherwise healthy. Family and social history: Noncontributory. Pertinent exam findings / vital signs include mild erythema to the right earlobe, small 1 cm abrasion to right wrist with mild erythema without purulent drainage or fluctuant swelling, stable vitals, afebrile and nontoxic. Differential / pathologies of concern include cellulitis, sepsis, vasovagal episode, less likely ACS. Diagnostic studies of: -CBC, CMP, lactate, troponin, magnesium, lipase, COVID/flu/RSV PCR, blood cultures, EKG. -CBC shows no leukocytosis -Lactate negative -CMP without actionable abnormality -Magnesium within normal limits -Troponin negative with reliable onset -Lipase negative -COVID/flu/RSV PCR negative -Blood cultures pending -EKG Sinus rhythm at 91 bpm with P waves followed by narrow complex QRS with normal axis, normal QT QTc, borderline ST elevation in V1 V2 without T wave abnormalities Interventions of: -Started on Keflex p.o for cellulitis. ED Course/Assessment/Plan: 33-year-old otherwise healthy male has a known mild right wrist abrasions and is infected as well as right ear redness and swelling ongoing from an ear piercing. He had a possible vasovagal syncope today with a negative troponin unreliable onset, no evidence of Wellens syndrome on EKG, I counseled the patient that he likely has cellulitis, I stressed good oral intake for hydration and nutrition and strict return criteria for any further emergent concerns like other episodes of syncope, chest pain, palpitations, dizziness, fevers, red streaking up the arm from his right wrist abrasion. Findings not consistent with ACS, sepsis, electrolyte abnormality. Disposition of cellulitis, vasovagal episode. Patient verbalized understanding of the plan and return to ED criteria and engaged in shared decision making. Medical Records Medical records reviewed: Yes I reviewed the patient's medical records. Lab Data Lab results reviewed: Yes I reviewed the patient's lab results. Labs: 10/09/24 19:49 Blood Blood Culture - Pending 10/09/24 19:47 Blood Blood Culture - Pending Laboratory Tests Range/Units 10/09/24 19:47 WBC (4.4-10.8) 10^3/uL 7.25 RBC (4.36-5.78) 10^6/uL 5.41 Hgb (13.5-17.5) g/dL 16.6 Hct (40.0-50.0) % 49.4 MCV (80-95) fL 91 MCH (27.0-33.0) pg 30.7 MCHC (32.0-36.0) % 33.6 RDW (11.8-14.1) % 12.0 Plt Count (130-400) 10^3/uL 228 MPV (8.0-11.0) fL 9.8 Immature Gran % % 0.4 Neutrophils % % 84.5 Lymphocytes % % 9.7 Monocytes % % 5.2 Eosinophils % % 0.1 Basophils % % 0.1 Nucleated RBC % (0.0-0.3) % 0.0 Absolute Neutrophils (1.2-6.7) 10^3/uL 6.12 Absolute Lymphocytes (1.2-3.4) 10^3/uL 0.70 L Absolute Monocytes (0.1-0.8) 10^3/uL 0.38 Absolute Eosinophils (0.0-0.7) 10^3/uL 0.01 Absolute Basophils (0.0-0.2) 10^3/uL 0.01 VBG Lactate (<or=2.0) mmol/L 1.8 Sodium (136-145) mmol/L 141 Potassium (3.5-5.1) mmol/L 3.8 Chloride (98-107) mmol/L 99 Carbon Dioxide (21.0-32.0) mmol/L 35.4 H Anion Gap (3-11) mmol/L 6.6 BUN (7-18) mg/dL 13 Creatinine (0.70-1.30) mg/dL 1.3 Est GFR (CKD-EPI 2020) (mL/min/1.73m2) 75.32 Glucose (74-106) mg/dL 100 Calcium (8.5-10.1) mg/dL 10.1 Magnesium (1.8-2.4) mg/dL 2.2 Total Bilirubin (0.2-1.0) mg/dL 1.05 H AST (15-37) U/L 15 ALT (16-63) U/L 32 Alkaline Phosphatase (46-116) U/L 85 Troponin I (<or=76) ng/L < 4 Total Protein (6.4-8.2) g/dL 8.8 H Albumin (3.4-5.0) g/dL 4.3 Lipase (<78) U/L 14 COVID-19 Source Nasopharynx SARS-CoV-2 (PCR) (Negative) Negative Influenza Type A (PCR) (Negative) Negative Influenza Type B (PCR) (Negative) Negative RSV (PCR) (Negative) Negative Quality:SDOH Health Related Social Needs: No Data to Display PFSH All Active Problems (Updated 02/05/25 @ 21:04 by SUZANNA Gruber) Vaso vagal episode (Acute) Cellulitis (Acute) Medical History ADHD Migraine Social History Smoking/Tobacco Use Status: Current every day Tobacco Type: cigarettes Years smoked: 6, e-cigarettes and smokeless tobacco Smoking risk assessment performed?: Yes Alcohol Intake: former Drug use: Daily Substance use type: marijuana Housing: apartment Do you feel safe at home: Yes Do you feel safe in your relationship?: Yes
--- OUTSIDE RECORDS SUMMARY | 2024-10-09 19:27 | XMS_ITS | Encounter Summary ---
[place] [address] Care Team Providers Care Naphthalene Operator Helper Name Role Phone Marizol Mott MD Primary Care Provider [phone] Reason for Visit * Reason Comments Acne Encounter Details Date Type Department Care Team (Late st Contact Info) Description 04/20/2011 9:00 AM EDT Office Visit Dermatology [address] [facility] [address] [place] [address] Sohail Mitchell MD [address] [place] [address] Keratosis pilaris (Primary Dx); Acne vulgaris Social History Tobacco Use Types Packs/Day Years Used Date Smoking Tobacco: Never Alcohol Use Standard Drinks/Week Comments Not Asked 0 (1 standard drink = 0.6 oz pur e alcohol) Sex and Gender Information Value Date Recorded Sex Assigned at Not on file Gender Identity Not on file Sexual Orientation Not on file documented as of this encounter Progress Notes * Sohail Mitchell MD - 04/20/2011 9:29 AM EDT Problem: Acne vulgaris. Valente follows up with his brother Arsen. He is quite excited because in a few weeks he will be heading out to the [employer] 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 For the last year he has had problems with acne vulgaris that has not responded to Retin-A Cream prescribed by Dr. Mott and did not respond to Proactiv or [id number] products. His keratosis pilaris is slowly improved he states since I last saw him in 2008. Physical examination today reveals a pleasant 20-year-old who has mild inflammatory papular acne of the chin area but sparing really the rest of his face. There are no deep-seated pustular lesions, there are no scarring lesions. He has no involvement on the chest or back. He has mild involvement with keratosis pilaris on the lateral arms. Assessment & Plan: Acne vulgaris. a. Discussed etiology. b. Recommended that we begin Benzoyl Peroxide 2.5% Water Base Gel apply to face q. AM after washing to affected area, 60gm dispensed with p.r.n. refills. c. In the evenings begin Clindamycin 1% Solution apply on a q. day basis to affected areas, 60ml dispensed with p.r.n. refills. Keratosis pilaris. a. Discussed the option of Lac-Hydrin Cream or Tretinoin Cream but the patient is happy just to allow this to proceed and heal on its own. No intervention desired. b. RTC here p.r.n. Cc: Marizol Mott MD documented in this encounter Plan of Treatment Not on file documented as of this encounter Visit Diagnoses Diagnosis Keratosis pilaris- Primary Other specified congenital anomaly of skin Acne vulgaris Other acne documented in this encounter Care Teams Naphthalene Operator Helper Relationship Specialty Start Date End Date Marizol Mott MD [address] [place] [address] PCP - General 04/20/11 documented as of this encounter
--- OUTSIDE RECORDS SUMMARY | 2024-10-09 19:27 | XMS_ITS | Clinical Summary ---
Author Organization [facility] [place] [address] Care Team Providers Care Matting Press Tender Name Role Phone Marizol Mott MD Primary Care Provider [phone] Allergies Active Allergy Reactions Criticality Noted Date Comments Amoxicillin 04/20/2011 Penicillins 04/20/2011 Medications Medication Sig Dispensed Refills Start Date End Date Status CITALOPRAM HYDROBROMIDE (CELEXA ORAL) Take by mouth. Active SUMATRIPTAN SUCCINATE (IMITREX ORAL) Take by mouth as needed. Active Active Problems Problem Noted Date Diagnosed Date Acne vulgaris 04/20/2011 Keratosis pilaris 04/19/2011 Social History Tobacco Use Types Packs/Day Years Used Date Smoking Tobacco: Never Alcohol Use Standard Drinks/Week Comments Not Asked 0 (1 standard drink = 0.6 oz pur e alcohol) Sex and Gender Information Value Date Recorded Sex Assigned at Not on file Gender Identity Not on file Sexual Orientation Not on file Plan of Treatment Health Maintenance Due Date Last Done Comments HIV screen 2010 Hepatitis C Screening 2010 Hepatitis B vaccine (0-59 yrs) (1) 11/07/2011 Tetanus/Diphtheria/Pertussis Vaccines (1 - Tdap) 11/06 Covid-19 Vaccine ( - 2023- season) 2024 Influenza (Flu) vaccine (1 o f 1 - Influenza standard series) 05/05/2024 Care Teams Matting Press Tender Relationship Specialty Start Date End Date Marizol Mott MD [address] [place] [address] [address] [place] [address] PCP - General 04/20/11
--- OUTSIDE RECORDS SUMMARY | 2024-10-09 19:27 | XMS_ITS | Encounter Summary ---
[place] [address] Care Team Providers Care Care Worker Name Role Phone Arden Larsen MD Primary Care Provider Unavaila ble Encounter Details Date Type Department Care Team (Late st Contact Info) Description 04/19/2011 Abstract [place] [id number] Sonya Felix, RN Social History Tobacco Use Types Packs/Day Years Used Date Smoking Tobacco: Never Assessed Sex and Gender Information Value Date Recorded Sex Assigned at Not on file Gender Identity Not on file Sexual Orientation Not on file documented as of this encounter Plan of Treatment Not on file documented as of this encounter Visit Diagnoses Not on filedocumented in this encounter Care Teams Care Worker Relationship Specialty Start Date End Date Arden Larsen MD PCP - General 07/27/10 04/19/11 documented as of this encounter
[2024-10-09 20:06] LABS: Lactate 1.8 mmol/L (<or=2.0)
[2024-10-09 20:08] LABS: Abs Immature Grans 0.03 10^3/uL (0.0-0.06); Absolute Basophil Count 0.01 10^3/uL (0.0-0.2); Absolute Eosinophil Count 0.01 10^3/uL (0.0-0.7); Absolute Monocyte Count 0.38 10^3/uL (0.1-0.8); Absolute Neutrophil Count 6.12 10^3/uL (1.2-6.7); Basophils % 0.1 %; Eosinophils % 0.1 %; HCT 49.4 % (40.0-50.0); HGB 16.6 g/dL (13.5-17.5); Immature Grans % 0.4 %; Lymphocytes % 9.7 %; MCH 30.7 pg (27.0-33.0); MCHC 33.6 % (32.0-36.0); MCV 91 fL (80-95); MPV 9.8 fL (8.0-11.0); Monocytes % 5.2 %; Neutrophils % 84.5 %; Platelet Count 228 10^3/uL (130-400); RBC 5.41 10^6/uL (4.36-5.78); RDW-SD 40.3 fL; WBC 7.25 10^3/uL (4.4-10.8)
[2024-10-09 20:29] LABS: ALT 32 U/L (16-63); AST 15 U/L (15-37); Albumin 4.3 g/dL (3.4-5.0); Alkaline Phosphatase 85 U/L (46-116); Anion Gap 6.6 mmol/L (3-11); BUN 13 mg/dL (7-18); Bilirubin, Total 1.05 mg/dL (0.2-1.0); CO2 35.4 mmol/L (21.0-32.0); CREATININE 1.3 mg/dL (0.70-1.30); Calcium 10.1 mg/dL (8.5-10.1); Chloride 99 mmol/L (98-107); Estimated GFR 75.32 (mL/min/1.73m2); Glucose 100 mg/dL (74-106); Magnesium 2.2 mg/dL (1.8-2.4); Potassium 3.8 mmol/L (3.5-5.1); Sodium 141 mmol/L (136-145); Total Protein 8.8 g/dL (6.4-8.2)
[2024-10-09 20:34] LABS: Troponin I < 4 ng/L (<or=76)
[2024-10-09 20:45] LABS: Lipase 14 U/L (<78)
[2024-10-09 20:46] LABS: COVID-19 PCR Negative (Negative); Influenza A PCR Negative (Negative); Influenza B PCR Negative (Negative); RSV PCR Negative (Negative)
[2024-10-09 20:51] LABS: Source Nasopharynx
[2024-10-09] MEDS: Cephalexin 500 MG CAP, 2 CAPS/BTL PO (21:15)
== END 2024-10-09 21:15 | disposition home or self-care (01) ==
PROVIDERS: Emergency Provider Physician Assistant; PCP Nurse Practitioner Family
DX: H60.11 Cellulitis of right external ear (principal); L03.113 Cellulitis of right upper limb
CPT/HCPCS: 80053; 83690; 87040; 87637; 93005; 99284; 83605; 83735; 84484; 85025; 93010

== ENCOUNTER 2025-03-11 14:55 | Emergency (ER) | payer MEDICAID, SELFPAY ==
[2025-03-11 15:02] VITALS: BP 119/81; PULSE 96; RESP 20; TEMP 36.7; O2SAT 95
--- NOTE | 2025-03-11 16:52 | W.ED.GENAD ---
Discharge Plan Disposition Patient Disposition: Home Condition: Stable Discharge Details Clinical Impression: Cellulitis of groin, left Primary Care Provider: NOHEMY WALKER ED Provider: Raquel Ramesh Home Meds and New Rx's Prescriptions: New doxycycline hyclate 100 mg capsule 100 mg PO BID 10 Days Qty: 20 0RF Rx Instructions: Please take 1 capsule by mouth twice daily for the next 10 days Continued sumatriptan succinate [Imitrex] 25 MG tablet 1 tab PO ONCE PRN ibuprofen 600 MG tablet 600 mg PO Q6H PRN (Reason: Pain) Qty: 16 0RF lisdexamfetamine [Vyvanse] 40 mg capsule 40 mg PO DAILY lamotrigine [Lamictal] 100 mg tablet 100 mg PO DAILY dextroamphetamine-amphetamine [Adderall] 5 mg tablet 5 mg PO DAILY Discharge Instructions Instructions: Cellulitis (Skin Infection), Adult ED Additional Instructions: Please do not pick at or try to express any more pus out of the area. You may apply warm compresses such as in the shower daily. Please take the antibiotics with yogurt or a probiotic twice daily as directed. You are given the first dose here in the ER. No soaking or swimming. Keep clean and dry as possible. Decrease vigorous activities if possible. Please return after 3 days of the antibiotic or if there is significant increase in the redness, increasing bodyaches chills fever, problems urinating or swelling in your testicle, or if you are feeling worse at any time. Follow up with primary care provider in 3-5 days. Return to ED sooner if any worsening or concerns. Please take Tylenol or Ibuprofen with food every 4-6 hours as needed for pain and swelling. Thank you for allowing us to care for you today. Referrals: NOHEMY WALKER, CLIENT DELIVERY MANAGER [Primary Care Provider, Medicine] - 5 days Referral Note: ER follow-up left groin infection Clinical Impression: Cellulitis of groin, left Discharge Data Discharge Date/Time-TO BE ENTERED AT DEPARTURE: 03/11/25 17:30 HPI General Mode of arrival: ambulatory. Date/Time Provider Initiated Documentation: 03/11/25 15:44. Limitations to Documentation: no limitations. Information obtained by: patient, RN notes reviewed and old records reviewed. HPI Narrative: 34-year-old male presents to the ER with a chief complaint of left groin abscess which he noticed approximately 3 and half days ago. He reports that he was poking at it and expressed some green pus. He now reports some increased pain with ambulation. He does have an area of induration noted to his left groin with surrounding erythema. No palpable area of fluctuance noted no active drainage. He denies any fever or chills. He is a current smoker, previous drug user, and occasional alcohol. He reports that the pain is radiating into his left testicle. Related Data Home Medications ?Medication ?Instructions ?Recorded ?Confirmed ibuprofen 600 mg tablet 600 mg PO Q6H PRN Pain ##16 04/02/17 03/11/25 sumatriptan succinate 25 mg tablet 1 tab PO ONCE PRN 04/02/17 03/11/25 (Imitrex) lisdexamfetamine 40 mg capsule 40 mg PO DAILY 02/10/24 03/11/25 (Vyvanse) dextroamphetamine-amphetamine 5 mg 5 mg PO DAILY 02/26/24 03/11/25 tablet (Adderall) lamotrigine 100 mg tablet 100 mg PO DAILY 02/26/24 03/11/25 (Lamictal) doxycycline hyclate 100 mg capsule 100 mg PO BID Left groin 03/11/25 cellulitis 10 days #20 caps Previous Rx's ?Medication ?Instructions ?Recorded ibuprofen 600 mg tablet 600 mg PO Q6H PRN Pain ##16 04/02/17 doxycycline hyclate 100 mg capsule 100 mg PO BID Left groin 03/11/25 cellulitis 10 days #20 caps Allergies Allergy/AdvReac Type Severity Reaction Status Date / Time amoxicillin Allergy Mild Skin Rash Verified 03/11/25 14:59 Penicillins Allergy Mild Skin Rash Verified 03/11/25 14:59 General Stated Complaint: RashLesion BLANCA: 4 Review of Systems Gastrointestinal Gastrointestinal: Reports as per HPI and Denies abdominal pain Genitourinary Genitourinary: Reports as per HPI (Left groin abscess and pain), Denies difficulty urinating, Denies scrotal swelling, Reports testicular pain, Denies urinary frequency and Denies urinary hesitancy Integumentary/Breasts Skin/Breast: Reports as per HPI, Reports erythema, Reports skin pain and Reports skin swelling Exam Narrative Exam Narrative: Constitutional: Alert and oriented x3. Appears stated age. Normal body habitus. Head: Normocephalic, no trauma. Chest: RRR, Normal S1, S2, distal pulses intact. Resp: Lungs clear to auscultation bilaterally, no wheezes, rales, or rhonchi. Abdomen: Soft, non-distended, Normoactive bowel sounds all 4 quads. See exam below : See exam below GI Inspection: normal to inspection, no abdominal wall ecchymosis and non-distended Palpation: soft, no hernias, no pulsatile masses and tender other (Left inguinal groin) Auscultation: normal bowel sounds General: bladder normal to palpation Male General Exam: Yes normal external exam Scrotum: scrotum normal, no ecchymosis, not edematous and not erythematous Male genitals images:  1. Erythema 2. Indurated area with central excoriation, no fluctuance palpated no active drainage. Course Vital Signs Vital signs: Vital Signs Temperature 36.7 C 03/11/25 15:02 Pulse 96 H 03/11/25 15:02 Respiratory Rate 20 03/11/25 15:02 Blood Pressure 119/81 03/11/25 15:02 Pulse Oximetry 95 03/11/25 15:02 Temperature 36.7 C 03/11/25 15:02 Temperature Source Oral 03/11/25 15:02 Pulse 96 H 03/11/25 15:02 Respiratory Rate 20 03/11/25 15:02 Blood Pressure 119/81 03/11/25 15:02 Blood Pressure Position Sitting 03/11/25 15:02 Pulse Oximetry 95 03/11/25 15:02 Oxygen Delivery Method Room Air 03/11/25 15:02 Oxygen Flow Rate 0 03/11/25 15:02 Pain Level 7 03/11/25 15:02 Medical Decision Making 34-year-old male presents to the ER with a chief complaint of left groin abscess which he noticed approximately 3 and half days ago. He reports that he was poking at it and expressed some green pus. He now reports some increased pain with ambulation. He does have an area of induration noted to his left groin with surrounding erythema. No palpable area of fluctuance noted no active drainage. Denies abd pain, no N/V/D. He denies any fever or chills. He is a current smoker, reports previous prescription and street drug user, and occasional alcohol. He reports that the pain is radiating into his left testicle. On exam he does have a proximately 3 cm x 2-1/2 cm in diameter area of induration with a central excoriation. Surrounding erythema measuring approximately 12 cm in diameter. No erythema swelling to his left testicle, left groin tender with palpation. Considered labs and CT imaging however, patient is nontachycardic, afebrile has no systemic symptoms and patient agrees to try p.o. antibiotics first. Will maria ines redness, and I did discuss at length home care, follow-up care and strict return instructions to return after 3 days or if any significant increase in the redness, fever chills, vomiting or concerns, with patient who verbalized understanding. Will place patient on doxycycline 100 mg twice daily for approximately 10 days. First dose given here in the department with 2 tablets to go. This text was generated using [employer] dictation system, please disregard any oddities of phrase or misspellings. PFSH All Active Problems Cellulitis of groin, left (Acute) Medical History ADHD Migraine Social History Smoking/Tobacco Use Status: Current every day Tobacco Type: cigarettes Years smoked: 6, e-cigarettes and smokeless tobacco Smoking risk assessment performed?: Yes Alcohol Intake: former Drug use: Binges Substance use type: marijuana, amphetamines and prescription drug Housing: apartment Do you feel safe at home: Yes Do you feel safe in your relationship?: Yes PAWSS Have you Been Recently Intoxicated or Drunk Within the Last 30 days?: Yes Have you Ever Experienced Previous Episodes of Alcohol Withdrawal?: No Have you ever Experienced Withdrawal Seizures?: No Have you ever Experienced Delirium Tremens(DT)s?: No Have you ever undergone Alcohol Rehabilitation Treatment (i.e, inpt ot outpatient treatment programs)?: No Have you ever Experienced Blackouts?: No Have you ever Combined Alcohol with other Downers within the last 90 days?: No Have you ever Combined Alcohol with any other Substance of Abuse during the last 90 days?: No Positive Blood Alcohol level on Presentation? [PCS.BAL]: No Evidence of Increased Autonomic Activity (i.e. HR>120, tremor, sweating, agitation, nausea)?: Yes Result: 2
[2025-03-11] MEDS: Doxycycline Hyclate 100 MG CAP PO (16:58)
[2025-03-11] MEDS: Doxycycline Hyclate 100 MG, 2 CAPS/BTL PO (16:58)
[2025-03-11 17:29] VITALS: BP 119/81; PULSE 96; RESP 20; TEMP 36.7; O2SAT 95
== END 2025-03-11 17:30 | disposition home or self-care (01) ==
PROVIDERS: Emergency Provider Registered Nurse Emergency; PCP Nurse Practitioner Family
DX: L03.314 Cellulitis of groin (principal)
CPT/HCPCS: 99284; 99283

== ENCOUNTER 2025-08-18 16:34 | Emergency (ER) | payer SELFPAY ==
[2025-08-18 16:35] VITALS: BP 141/85; PULSE 70; RESP 16; TEMP 36.4; O2SAT 98
--- NOTE | 2025-08-18 17:02 | W.ED.GENAD ---
Discharge Plan Disposition Patient Disposition: Home Condition: Stable Discharge Details Clinical Impression: Acute lumbar radiculopathy Primary Care Provider: NOHEMY WALKER ED Provider: Alex Magallon Home Meds and New Rx's Prescriptions: New ketorolac 10 mg tablet 10 mg PO QID 5 Days Qty: 20 0RF Rx Instructions: maximum total duration of 5 days from all oral, intranasal, or parenteral formulations cyclobenzaprine 10 mg tablet 10 mg PO TID PRNQty: 30 0RF Continued sumatriptan succinate [Imitrex] 25 MG tablet 1 tab PO ONCE PRN ibuprofen 600 MG tablet 600 mg PO Q6H PRN (Reason: Pain) Qty: 16 0RF lisdexamfetamine [Vyvanse] 40 mg capsule 40 mg PO DAILY lamotrigine [Lamictal] 100 mg tablet 100 mg PO DAILY dextroamphetamine-amphetamine [Adderall] 5 mg tablet 5 mg PO DAILY Discharge Instructions Instructions: Ketorolac (Systemic), Cyclobenzaprine, Back Stretches Standing or Seated, Back Stretches on Floor, Radiculopathy of the neck and back (including sciatica) Additional Instructions: You were seen in the emergency department for your lumbar radiculopathy, you likely have a muscle spasm with possibly a small disc bulge and a pinched nerve. As we discussed, your medication regimen will involve quite a few medicines and likely more pills than you are used to taking but it should improve over 1 to 2 weeks. Please take 1000 mg of Tylenol every 6 hours like clockwork, intermediate in between Tylenol dosings for the next 5 days take the prescribed ketorolac-this is an anti-inflammatory, so do not take other anti-inflammatories with this like ibuprofen or Aleve or Advil, once you run out of ketorolac you can take ibuprofen in its place. Take the prescribed cyclobenzaprine 3 times per day, is not advisable to drive on this medication but it will help with skeletal muscle relaxation. Apply an xlww-jza-stkzsis lidocaine patch to the area of pain while you sleep for 12 hours, during the day you can purchase hyxx-iac-rcbujhl topical diclofenac gel and apply 2-3 times to your lower back for extra anti-inflammatory effect and pain relief. It would be good to purchase an taif-bes-bcoerab back brace to help you through your workday and bring a small pillow with you to keep good posture, follow-up with physical therapy for exercises for lower back pain. Please return for any of the symptoms we discussed like urinary retention, numbness to the genitals, bowel incontinence, weakness of the legs. Stand Alone Forms: Physical Therapy Referral, Portal Information, Work Release Referrals: NOHEMY WALKER, [employer] [Primary Care Provider, Medicine] Discharge Data Discharge Date/Time-TO BE ENTERED AT DEPARTURE: 08/18/25 17:09 HPI General Date/Time Provider Initiated Documentation: 08/18/25 16:35. HPI Narrative: 34 year-old male presents to ED today by POV/ambulating with a chief complaint of lower back pain, pain shooting down legs R worse than L with onset insidiously- just woke up with pain one day, no trauma. Quality described as shooting pains, tightness in lower back, no radiation to urinary retention, numbness to genitals, bowel incontinence, weakness to legs, numbness to legs. Severity is described as severe. Palliating factors include took some doses of OTC meds without relief. Provoking factors include tried a lumbar stretch his friend recommended with worsening. Events leading up to the incident/Associated Symptoms: Patient works as a master data analyst, lots of bending etc. Patient not anticoagulated. Related Data Home Medications ?Medication ?Instructions ?Recorded ?Confirmed ibuprofen 600 mg tablet 600 mg PO Q6H PRN Pain ##16 04/02/17 08/18/25 sumatriptan succinate 25 mg tablet 1 tab PO ONCE PRN 04/02/17 08/18/25 (Imitrex) lisdexamfetamine 40 mg capsule 40 mg PO DAILY 02/10/24 08/18/25 (Vyvanse) dextroamphetamine-amphetamine 5 mg 5 mg PO DAILY 02/26/24 08/18/25 tablet (Adderall) lamotrigine 100 mg tablet 100 mg PO DAILY 02/26/24 08/18/25 (Lamictal) cyclobenzaprine 10 mg tablet 10 mg PO TID PRN #30 tabs 08/18/25 ketorolac 10 mg tablet 10 mg PO QID 5 days #20 tabs 08/18/25 Previous Rx's ?Medication ?Instructions ?Recorded ibuprofen 600 mg tablet 600 mg PO Q6H PRN Pain ##16 04/02/17 cyclobenzaprine 10 mg tablet 10 mg PO TID PRN #30 tabs 08/18/25 ketorolac 10 mg tablet 10 mg PO QID 5 days #20 tabs 08/18/25 Allergies Allergy/AdvReac Type Severity Reaction Status Date / Time amoxicillin Allergy Mild Skin Rash Verified 08/18/25 16:40 Penicillins Allergy Mild Skin Rash Verified 08/18/25 16:40 General Stated Complaint: Nk/Back Pain BLANCA: 3 Review of Systems All systems reviewed & are unremarkable except as noted in HPI and below Exam Narrative Exam Narrative: GENERAL APPEARANCE: Well-nourished, non-toxic, awake and alert, atraumatic, mild acute distress. SKIN: Warm, pink, dry, intact, without rashes/lesions/ulcerations. HEAD: Normocephalic, atraumatic, normal hair distribution for gender/age. EYES: Normal conjunctiva, no exudates on lids/lashes. ENT: Nares patent, no circumoral cyanosis, no facial swelling NECK: Supple, trachea midline, painless cervical ROM. LUNGS/CHEST: Non-labored respirations, normal A/P diameter, symmetrical expansion, no chest wall deformity HEART (CV/PV): No peripheral edema, no JVD. ABDOMEN: Soft, non-distended, no guarding. MSK: Normal ROM, no swelling/deformity to bilateral UEs or LEs, moving all extremities without weakness, no cyanosis, spine midline without tenderness, normal curvature, lumbar paraspinal tenderness without crepitus/stepoffs, no saddle anesthesia NEURO: Mental Status AAOx4 - alert to person, place, time, events No facial droop, no forehead involvement. Motor: No focal weakness - strength 5/5 in bilateral UEs and LEs, proximal and distal, symmetric. Sensory: sensation intact to light touch globally. Gait normal: patient ambulated without ataxia into ED room. PSYCH: euthymic, cooperative, pleasant, appropriate speech Course Vital Signs Vital signs: Vital Signs Temperature 36.4 C L 08/18/25 16:35 Pulse 70 08/18/25 16:35 Respiratory Rate 16 08/18/25 16:35 Blood Pressure 141/85 H 08/18/25 16:35 Pulse Oximetry 98 08/18/25 16:35 Temperature 36.4 C L 08/18/25 16:35 Temperature Source Oral 08/18/25 16:35 Pulse 70 08/18/25 16:35 Respiratory Rate 16 08/18/25 16:35 Blood Pressure 141/85 H 08/18/25 16:35 Blood Pressure Position Sitting 08/18/25 16:35 Pulse Oximetry 98 08/18/25 16:35 Oxygen Delivery Method Room Air 08/18/25 16:35 Oxygen Flow Rate 0 08/18/25 16:35 Pain Level 6 08/18/25 16:35 Medical Decision Making This dictation utilizes [id number] dictation software and may contain unedited grammatical errors. 34 year-old male presents to ED today by POV/ambulating with a chief complaint of lower back pain, pain shooting down legs R worse than L with onset insidiously- just woke up with pain one day, no trauma. Quality described as shooting pains, tightness in lower back, no radiation to urinary retention, numbness to genitals, bowel incontinence, weakness to legs, numbness to legs. Severity is described as severe. Palliating factors include took some doses of OTC meds without relief. Provoking factors include tried a lumbar stretch his friend recommended with worsening. Events leading up to the incident/Associated Symptoms: Patient works as a master data analyst, lots of bending etc. Patients' medical history: Negative, otherwise healthy. Family and social history: Works as a master data analyst, denies drug or alcohol use, no IVDU history. Pertinent exam findings / vital signs include lumbar paraspinal tenderness worse on the right, no crepitus or step-offs to the midline lumbar spine, neurovascular intact bilateral lower extremity strength 5/5, no saddle anesthesia. Differential / pathologies of concern include acute lumbar radiculopathy, muscle spasm, not cauda equina. Diagnostic studies of: - Discussed low risk for emergent pathology and patient agreed we would trial conservative management prior to imaging. Interventions of: - Tylenol, IM Toradol, Lidoderm topical, Rx sent for ketorolac and cyclobenzaprine, sent referral for physical therapy. ED Course/Assessment/Plan: 34-year-old male otherwise healthy presents with lumbar radicular pain without any signs or symptoms of cauda equina or weakness to lower extremities, provided reassurance and strict return criteria for any signs of cauda equina but gave plenty of exercises through patient education literature materials as well as counseled on aggressive medication regimen, encouraged gentle massage, light duty for a few days given. Findings not consistent with cauda equina, trauma, risk factors for MARTINE. Disposition of acute lumbar radiculopathy. Patient verbalized understanding of the plan and return to ED criteria and engaged in shared decision making. Medical Records Medical records reviewed: Yes I reviewed the patient's medical records. PFSH All Active Problems (Updated 08/18/25 @ 17:03 by SUZANNA Gruber) Acute lumbar radiculopathy (Acute) Medical History ADHD Migraine Social History Smoking/Tobacco Use Status: Current every day Tobacco Type: cigarettes Years smoked: 6, e-cigarettes and smokeless tobacco Smoking risk assessment performed?: Yes Alcohol Intake: current Alcohol Intake frequency: 0-2 drinks per day Alcohol type: beer Drug use: Daily Substance use type: marijuana and prescription drug Housing: apartment Do you feel safe at home: Yes Do you feel safe in your relationship?: Yes PAWSS Have you Been Recently Intoxicated or Drunk Within the Last 30 days?: No Have you Ever Experienced Previous Episodes of Alcohol Withdrawal?: No Have you ever Experienced Withdrawal Seizures?: No Have you ever Experienced Delirium Tremens(DT)s?: No Have you ever undergone Alcohol Rehabilitation Treatment (i.e, inpt ot outpatient treatment programs)?: No Have you ever Experienced Blackouts?: No Have you ever Combined Alcohol with other Downers within the last 90 days?: No Have you ever Combined Alcohol with any other Substance of Abuse during the last 90 days?: No Positive Blood Alcohol level on Presentation? [PCS.BAL]: Unable to Obtain Evidence of Increased Autonomic Activity (i.e. HR>120, tremor, sweating, agitation, nausea)?: No Result: 0
[2025-08-18] MEDS: Acetaminophen 500 MG TAB 1000 MG PO (17:20)
[2025-08-18] MEDS: Ketorolac 30 MG/ML VIAL IM (17:20)
[2025-08-18] MEDS: Lidocaine 5% Patch 1 PATCH TP (17:21)
== END 2025-08-18 17:09 | disposition home or self-care (01) ==
PROVIDERS: Emergency Provider Physician Assistant; PCP Nurse Practitioner Family
DX: M54.16 Radiculopathy, lumbar region (principal)
CPT/HCPCS: 99283; 99284; 96372; J1885